=== PATIENT | female | born 1945 | race Hispanic/Latino ===

== ENCOUNTER 2017-04-06 10:21 | Outpatient (CLI) | payer MEDICARE ==
[2017-04-06] MEDS ORDERED: XYLOCAINE TOPICAL 4% TP ONE ×2 (12:08→17:02)
== END 2017-04-06 10:22 | disposition home or self-care (01) ==
LOC: WOUND 10:21
PROVIDERS: ATTEND Surgery
DX: T81.89XA Other complications of procedures, not elsewhere classified, initial encounter (principal); E11.622 Type 2 diabetes mellitus with other skin ulcer; L97.122 Non-pressure chronic ulcer of left thigh with fat layer exposed; L98.491 Non-pressure chronic ulcer of skin of other sites limited to breakdown of skin; L89.152 Pressure ulcer of sacral region, stage 2; L89.612 Pressure ulcer of right heel, stage 2; I11.0 Hypertensive heart disease with heart failure; I50.9 Heart failure, unspecified; Z86.73 Personal history of transient ischemic attack (TIA), and cerebral infarction without residual deficits; Z90.710 Acquired absence of both cervix and uterus; Z89.612 Acquired absence of left leg above knee; X58.XXXA Exposure to other specified factors, initial encounter; Y93.89 Activity, other specified; Y92.89 Other specified places as the place of occurrence of the external cause; Y99.8 Other external cause status
CPT/HCPCS: 11042; 11045; G0463

== ENCOUNTER 2017-04-14 10:17 | Outpatient (CLI) | payer MEDICARE ==
[2017-04-14] MEDS ORDERED: XYLOCAINE TOPICAL 4% TP ONE ×2 (11:02→11:17)
[2017-04-14] MEDS ORDERED: SILVER NITRATE TP ONE (11:39)
[2017-04-20] MEDS ORDERED: XYLOCAINE TOPICAL 4% TP ONE (08:22)
[2017-04-20] MEDS ORDERED: SILVER NITRATE TP ONE (08:23)
== END 2017-04-14 10:18 | disposition home or self-care (01) ==
LOC: WOUND 10:17
PROVIDERS: ATTEND Surgery
DX: T81.89XD Other complications of procedures, not elsewhere classified, subsequent encounter (principal); E11.621 Type 2 diabetes mellitus with foot ulcer; L89.152 Pressure ulcer of sacral region, stage 2; L89.612 Pressure ulcer of right heel, stage 2; L97.122 Non-pressure chronic ulcer of left thigh with fat layer exposed; L97.512 Non-pressure chronic ulcer of other part of right foot with fat layer exposed; I11.0 Hypertensive heart disease with heart failure; I50.9 Heart failure, unspecified; Z86.73 Personal history of transient ischemic attack (TIA), and cerebral infarction without residual deficits; Z90.710 Acquired absence of both cervix and uterus; Y83.8 Other surgical procedures as the cause of abnormal reaction of the patient, or of later complication, without mention of misadventure at the time of the procedure